=== PATIENT | male | born 1980 | race Two or more races ===

== ENCOUNTER 2022-01-06 14:57 | Emergency (ER) | payer SELFPAY ==
[~2022-01-06] VITALS: Ht 172.7 cm; Wt 65.8 kg
[2022-01-06 15:06] VITALS: BP 146/82
--- NOTE | 2022-01-06 15:49 | NUR ---
Patient discharged to home in stable condition. Written and verbal after care instructions given. Patient verbalizes understanding of instruction.
== END 2022-01-06 15:49 | disposition home or self-care (01) ==
LOC: ER 15:13
DX: T26.92XA Corrosion of left eye and adnexa, part unspecified, initial encounter (principal); T26.91XA Corrosion of right eye and adnexa, part unspecified, initial encounter; T79.9XXA Unspecified early complication of trauma, initial encounter; Y93.89 Activity, other specified; Y92.89 Other specified places as the place of occurrence of the external cause; Y99.8 Other external cause status

== ENCOUNTER 2022-05-18 06:26 | Emergency (ER) | payer MEDICAID ==
[~2022-05-18] VITALS: Ht 180.3 cm; Wt 68.0 kg
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
[2022-05-18] MEDS ORDERED: HYDROCODONE/APAP 10/325MG TABLET ONE (06:58)
[2022-05-18] MEDS ORDERED: TDAP [DIPH/PERTUSSIS/TET] 0.5 ML VIAL IM ONE ×2 (06:58→07:00)
[2022-05-18] MEDS ORDERED: HYDROCODONE/APAP 10/325MG TABLET PO ONE (07:00)
[2022-05-18] MEDS ORDERED: LIDOCAINE 5% (PATCH) 1 EA PATCH TP SCH (07:00)
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
--- NOTE | 2022-05-18 08:23 | NUR ---
BACK FROM CT
[2022-05-18] MEDS ORDERED: LIDO30AD10 TP (09:16)
[2022-05-18] MEDS ORDERED: IBUP-1957 PO (09:16)
--- NOTE | 2022-05-18 10:47 | NUR ---
Updated and re-Evaluated by Dr Banegas. Patient discharged to home in stable condition. Written and verbal after care instructions given. Patient verbalizes understanding of instruction.
[2022-05-18 10:48] VITALS: BP 124/72
== END 2022-05-18 10:48 | disposition home or self-care (01) ==
LOC: ER 06:28
DX: S20.212A Contusion of left front wall of thorax, initial encounter (principal); S00.01XA Abrasion of scalp, initial encounter; R51.9 Headache, unspecified; Z79.899 Other long term (current) drug therapy; Y04.8XXA Assault by other bodily force, initial encounter; Y93.89 Activity, other specified; Y92.89 Other specified places as the place of occurrence of the external cause; Y99.8 Other external cause status
CPT/HCPCS: 70450-TC; 71100-TC; 72125-TC; 90715